=== PATIENT | male | born 1930 | race Caucasian/White ===

== ENCOUNTER 2016-05-15 10:35 | Emergency (ER) | payer OTHER ==
[~2016-05-15] VITALS: Ht 175.3 cm; Wt 80.0 kg
[~2016-05-15 10:35] MED LIST changes: -MIRALAX17 GM PO; -NORCO 5/3251 TABLET PO; -XARELTO20 MG PO
[2016-05-15 13:00] VITALS: BP 123/87
[2016-05-15] MEDS ORDERED: NORCO 5/3251 TABLET PO (14:00)
[2016-05-15] MEDS ORDERED: XARELTO20 MG PO (14:04)
[2016-05-15] MEDS ORDERED: MIRALAX17 GM PO (14:07)
== END 2016-05-15 14:56 | disposition left against medical advice (07) ==
LOC: EME 10:35
DX: Z00.8 Encounter for other general examination (principal); Z53.21 Procedure and treatment not carried out due to patient leaving prior to being seen by health care provider

== ENCOUNTER → 2016-05-15 | Outpatient (CLI) | payer OTHER ==
[~2016-05-15] MED LIST: ASPIRIN E.C.81 M1 PO; ASPIRIN325 MG PO; ATENOLOL50 M1 PO; Bactrim,Septra DS 80 PO; CILOSTAZOL100 MG PO; COUMADIN,JANTO2.5 MG PO; CYTOTEC200 MC1 PO; Chronulac,Cephulac PO; DICLOFENAC SODI75 MG PO; Diabeta,Micronase PO; FENTANYL1 EAC5 TD; GLYBURIDE5 MG PO; LUMIGAN 0.50 DROP/2. BOTH EYES; Lumigan 0.01% Ophth BOTH EYES; MIRALAX17 GM PO; MULTIVITAMIN1 EAC2 PO; NORCO 5/3251 TABLET PO; NORVASC10 M1 PO; PLAVIX75 MG PO; TRAMADOL HCL50 MG PO; TRIAMTERENE HCTZ PO; TRIAMTERENE-HC1 EACH PO; Tylenol Regular Stre PO; VICODIN,LORT1 TABLET PO; XARELTO20 MG PO; ZESTRIL,PRINIVI20 MG PO
== END | disposition home or self-care (01) ==
LOC: AMB 10:30
PROC: 0H9KXZZ Drainage of Right Lower Leg Skin, External Approach (ICD-10-PCS; principal; 2016-05-15)
DX: L02.416 Cutaneous abscess of left lower limb (principal); B95.4 Other streptococcus as the cause of diseases classified elsewhere; R26.89 Other abnormalities of gait and mobility; Z89.511 Acquired absence of right leg below knee; Z95.828 Presence of other vascular implants and grafts; Z95.820 Peripheral vascular angioplasty status with implants and grafts; E11.9 Type 2 diabetes mellitus without complications; I10 Essential (primary) hypertension; Z79.84 Long term (current) use of oral hypoglycemic drugs; Z86.711 Personal history of pulmonary embolism; I73.9 Peripheral vascular disease, unspecified; Z79.01 Long term (current) use of anticoagulants; Z79.82 Long term (current) use of aspirin; Z79.891 Long term (current) use of opiate analgesic; Z88.0 Allergy status to penicillin; Z88.1 Allergy status to other antibiotic agents; Z88.8 Allergy status to other drugs, medicaments and biological substances; Z82.49 Family history of ischemic heart disease and other diseases of the circulatory system; Z80.9 Family history of malignant neoplasm, unspecified
CPT/HCPCS: 87070; 87075; 87076; 87205

== ENCOUNTER 2017-08-10 13:06 | Day surgery (SDC) | payer OTHER ==
[~2017-08-10] VITALS: Ht 175.3 cm; Wt 76.2 kg
[~2017-08-10 13:06] MED LIST changes: +CARAFATE1 GM PO; +DURAGESIC75 MCG TD; +LASIX40 MG PO; +LINZESS290 MCG PO; +LOPRESSOR50 MG PO; +MAGNESIUM400 M1 PO; +MICRO-K10 ME2 PO; +MICRONASE5 MG PO; +MIRALAX17 GM PO; +NORCO 5/3251 TABLET PO; +PREVACID15 MG PO; +XARELTO20 MG PO
[2017-08-10 13:44] VITALS: BP 122/84
[2017-08-10 18:35] VITALS: BP 154/76
[2017-08-10 19:05] VITALS: BP 148/82
== END 2017-08-10 19:27 | disposition home or self-care (01) ==
LOC: SDC 13:06
PROVIDERS: Neurological Surgery
DX: T85.79XA Infection and inflammatory reaction due to other internal prosthetic devices, implants and grafts, initial encounter (principal); B95.61 Methicillin susceptible Staphylococcus aureus infection as the cause of diseases classified elsewhere; G89.4 Chronic pain syndrome; E11.9 Type 2 diabetes mellitus without complications; M06.9 Rheumatoid arthritis, unspecified; Z79.01 Long term (current) use of anticoagulants; I10 Essential (primary) hypertension; Z85.89 Personal history of malignant neoplasm of other organs and systems; G90.529 Complex regional pain syndrome I of unspecified lower limb; Z88.8 Allergy status to other drugs, medicaments and biological substances; Z88.1 Allergy status to other antibiotic agents; Z88.0 Allergy status to penicillin; Y83.1 Surgical operation with implant of artificial internal device as the cause of abnormal reaction of the patient, or of later complication, without mention of misadventure at the time of the procedure
CPT/HCPCS: 80048; 82948; 85027; 87070; 87075; 87077; 87147; 87186; 87205; 93005; J0330; J3010; J3370

== ENCOUNTER 2017-08-13 09:33 | Emergency (ER) | payer OTHER ==
[~2017-08-13] VITALS: Ht 175.3 cm; Wt 75.5 kg
[2017-08-13 10:52] LABS: BASOPHIL (%) 0.4 % (0-1); BASOPHIL COUNT 0.1 K/uL (0-0.1); EOSINOPHIL (%) 1.8 % (0-5); EOSINOPHIL COUNT 0.2 K/uL (0-0.3); HEMATOCRIT 40.5 % (38.0-50.0); HEMOGLOBIN 13.4 G/DL (12.5-16.6); IMMATURE GRANULOCYTE (%) 0.4 % (0.0-0.7); LYMPHOCYTE (%) 10.2 % (15-42); LYMPHOCYTE COUNT 1.3 K/uL (1.0-2.8); MCH 30.4 PG (29.0-34.0); MCHC 33.1 G/DL (30.0-36.0); MCV 91.8 FL (86-99); MONOCYTE (%) 10.4 % (3-12); MONOCYTE COUNT 1.3 K/uL (0-0.8); NEUTROPHIL (%) 76.8 % (45-76); NEUTROPHIL COUNT 9.9 K/uL (1.8-6.4); PLATELET COUNT 209 K/uL (156-360); RBC DIS.WIDTH-CV 14.6 % (11.8-14.6); RBC DIS.WIDTH-SD 48.8 % (39-53); RED BLOOD COUNT 4.41 M/uL (4.00-5.50); WHITE BLOOD COUNT 12.9 K/uL (4.1-10.2)
[2017-08-13 11:04] LABS: CHLORIDE 105 mEq/L (99-109); SODIUM 143 mEq/L (136-147)
[2017-08-13 11:05] LABS: GLUCOSE 85 mg/dL (70-99)
[2017-08-13 11:09] LABS: CREATININE 1.3 mg/dL (0.6-1.3); GFR ESTIMATE (CALCULATED) 56 mL/min/ (58.99-99999)
[2017-08-13 11:10] LABS: UREA NITROGEN (BUN) 32 mg/dL (9-23)
[2017-08-13 15:37] VITALS: BP 152/80
[2017-08-14] MEDS ORDERED: ZYVOX600 MG PO (12:43)
== END 2017-08-13 15:38 | disposition home or self-care (01) ==
LOC: EME 09:33
PROVIDERS: Nurse Practitioner Family
DX: T81.4XXA Infection following a procedure, initial encounter (principal); T37.8X5A Adverse effect of other specified systemic anti-infectives and antiparasitics, initial encounter; R60.0 Localized edema; E11.22 Type 2 diabetes mellitus with diabetic chronic kidney disease; N18.9 Chronic kidney disease, unspecified; Z88.0 Allergy status to penicillin; J44.9 Chronic obstructive pulmonary disease, unspecified; I25.2 Old myocardial infarction; Z89.611 Acquired absence of right leg above knee; Z95.828 Presence of other vascular implants and grafts; Z79.82 Long term (current) use of aspirin; Z87.891 Personal history of nicotine dependence; Z88.8 Allergy status to other drugs, medicaments and biological substances
CPT/HCPCS: 80048; 85025; 87040; 99281; 99284; J3370

== ENCOUNTER 2017-08-14 08:57 | Emergency (ER) | payer OTHER ==
[~2017-08-14] VITALS: Ht 175.3 cm; Wt 75.8 kg
[2017-08-14] MEDS ORDERED: ZYVOX600 MG PO (12:43)
[2017-08-14 13:24] VITALS: BP 153/86
== END 2017-08-14 13:55 | disposition home or self-care (01) ==
LOC: EME 08:57
PROVIDERS: Emergency Medicine
DX: R22.0 Localized swelling, mass and lump, head (principal); R13.10 Dysphagia, unspecified; T36.8X5A Adverse effect of other systemic antibiotics, initial encounter; E11.9 Type 2 diabetes mellitus without complications; J44.9 Chronic obstructive pulmonary disease, unspecified; M06.9 Rheumatoid arthritis, unspecified; I25.2 Old myocardial infarction; Z89.611 Acquired absence of right leg above knee; Z90.49 Acquired absence of other specified parts of digestive tract; Z87.891 Personal history of nicotine dependence; Z88.1 Allergy status to other antibiotic agents; Z88.0 Allergy status to penicillin; Z88.8 Allergy status to other drugs, medicaments and biological substances
CPT/HCPCS: 82948; 99281; 99284; J1200; J2020; J2930